=== PATIENT | male | born 1945 | race Caucasian/White ===

== ENCOUNTER 2016-12-28 06:01 | Day surgery (SDC) | payer MEDICARE, OTHER ==
[~2016-12-28] VITALS: Ht 165.1 cm; Wt 59.0 kg
[2016-12-28 07:43] VITALS: BP 130/109
[2016-12-28 10:27] VITALS: BP 122/54
== END 2016-12-28 11:55 | disposition home or self-care (01) ==
LOC: GI 06:01 → OR 09:30 → GI 09:30
PROVIDERS: Internal Medicine
PROC: 0DBP8ZZ Excision of Rectum, Via Natural or Artificial Opening Endoscopic (ICD-10-PCS; principal; 2016-12-28 09:30)
DX: K64.4 Residual hemorrhoidal skin tags (principal); D12.8 Benign neoplasm of rectum; K59.00 Constipation, unspecified; G40.909 Epilepsy, unspecified, not intractable, without status epilepticus; R41.89 Other symptoms and signs involving cognitive functions and awareness; Z68.21 Body mass index [BMI] 21.0-21.9, adult
CPT/HCPCS: 45378; J1200; J1610; J2060; J2250; J2310; J3010; J3490